=== PATIENT | male | born 1935 | race Caucasian/White ===

== ENCOUNTER 2017-08-29 17:22 | Emergency (ER) | payer OTHER ==
[~2017-08-29] VITALS: Ht 167.6 cm; Wt 98.9 kg
[~2017-08-29 17:22] MED LIST: ALLOPURINOL300 MG PO; CARDURA4 MG PO; DITROPAN XL15 MG PO; GABAPENTIN400 MG PO; GEMFIBROZIL600 MG PO; LOVASTATIN10 MG PO; OMEPRAZOLE20 M1 PO
[2017-08-29] MEDS ORDERED: ACETAMINOPHEN 325 MG TAB PO ONE (18:15)
[2017-08-29 18:32] LABS: BASOPHILS % 0.2 % (0.0-1.0); EOSINOPHILS % 0.1 % (0.0-6.0); HEMATOCRIT 40.9 % (38.2-49.6); HEMOGLOBIN 14.1 g/dL (14.0-18.0); LYMPHOCYTES # (AUTO) 0.6 (1.0-3.2); LYMPHOCYTES % 5.6 % (18.0-39.1); MEAN CORPUSCULAR HEMOGLOBIN 33.6 pg (28-32); MEAN CORPUSCULAR HGB CONC 34.5 g/dL (31-35); MEAN CORPUSCULAR VOLUME 97.4 fL (81-99); MONOCYTES # (AUTO) 0.6 (0.2-0.8); MONOCYTES % 5.6 % (4.4-11.3); NEUTROPHILS % 88.1 % (38.7-80.0); PLATELET COUNT 148 x10e3/uL (140-360); RED CELL DISTRIBUTION WIDTH 14.8 % (11.7-14.4)
[2017-08-29 18:48] LABS: ALBUMIN 3.7 g/dL (3.5-5.0); ALBUMIN/GLOBULIN RATIO 0.9 (0.8-2.0); ANION GAP 13.9 mmol/L (8-16); CALCIUM 9.4 mg/dL (8.4-10.2); CREATININE, SERUM 1.39 mg/dL (0.72-1.25); POTASSIUM 3.9 mmol/L (3.5-5.1)
[2017-08-29 18:54] LABS: KETONES,URINE TRACE (NEGATIVE); LEUKOCYTE ESTERASE ,URINE 2+ (NEGATIVE); NITRITE,URINE NEGATIVE (NEGATIVE); URINE UROBILINOGEN 4 mg/dL (0.2 - 1)
[2017-08-29 18:55] LABS: BILIRUBIN,URINE 1+ (NEGATIVE); CLARITY,URINE SL CLOUDY (CLEAR); COLOR,URINE YELLOW (YELLOW); PROTEIN,URINE DIPSTICK TRACE (NEGATIVE)
[2017-08-29 19:04] LABS: WBC,URINE (MAN) >50 /HPF (0-5)
[2017-08-29 19:05] LABS: BACTERIA,URINE MODERATE /HPF; EPITHELIAL CELLS,URINE RARE /LPF
== END 2017-08-29 19:25 | disposition left against medical advice (07) ==
LOC: ER 17:22
DX: R50.9 Fever, unspecified (principal)
CPT/HCPCS: 36415; 80053; 81001; 83605; 85025; 87040; 87086; 87186; 99282

== ENCOUNTER → 2018-01-22 | Day surgery (SDC) | payer OTHER ==
[2018-01-21 14:04] LABS: BASOPHILS % 0.5 % (0.0-1.0); EOSINOPHILS # (AUTO) 0.1 (0.0-0.4); EOSINOPHILS % 2.2 % (0.0-6.0); HEMATOCRIT 37.3 % (38.2-49.6); HEMOGLOBIN 12.2 g/dL (14.0-18.0); LYMPHOCYTES # (AUTO) 2.7 (1.0-3.2); LYMPHOCYTES % 48.9 % (18.0-39.1); MEAN CORPUSCULAR HEMOGLOBIN 33.1 pg (28-32); MEAN CORPUSCULAR HGB CONC 32.7 g/dL (31-35); MEAN CORPUSCULAR VOLUME 101.1 fL (81-99); MONOCYTES # (AUTO) 0.6 (0.2-0.8); MONOCYTES % 11.2 % (4.4-11.3); NEUTROPHILS % 36.8 % (38.7-80.0); PLATELET COUNT 145 x10e3/uL (140-360); RED BLOOD COUNT 3.69 x10e6/uL (4.3-5.7); RED CELL DISTRIBUTION WIDTH 13.5 % (11.7-14.4)
[~2018-01-22] MED LIST changes: +ASPIR 8181 MG PO; +FENOFIBRATE145 MG PO; +FUROSEMIDE40 MG PO; +GABAPENTIN300 MG PO; +LIDOCAINE HCL 2% LOCAL INJ 5 ML SDV VIAL INJ ONE; +PROPOFOL IV EMULSION 10 MG/ML 20 ML VIAL ONE; +TIZANIDINE HCL4 MG PO; +ULTRAM 50MG50 MG PO
== END | disposition home or self-care (01) ==
LOC: OR 08:56
PROVIDERS: ATTEND Internal Medicine Gastroenterology
DX: K59.00 Constipation, unspecified (principal); K63.5 Polyp of colon; K57.30 Diverticulosis of large intestine without perforation or abscess without bleeding; K64.8 Other hemorrhoids; C67.9 Malignant neoplasm of bladder, unspecified; K21.9 Gastro-esophageal reflux disease without esophagitis; E66.3 Overweight; Z01.810 Encounter for preprocedural cardiovascular examination; Z01.812 Encounter for preprocedural laboratory examination; Z79.82 Long term (current) use of aspirin; Z68.29 Body mass index [BMI] 29.0-29.9, adult; Z87.891 Personal history of nicotine dependence; Z80.0 Family history of malignant neoplasm of digestive organs
CPT/HCPCS: 36415; 45380; 85025; 93005; J2001

== ENCOUNTER 2020-08-26 13:08 | Emergency (ER) | payer MEDICARE ==
[~2020-08-26] VITALS: Ht 167.6 cm; Wt 98.9 kg
[~2020-08-26 13:08] MED LIST changes: -LIDOCAINE HCL 2% LOCAL INJ 5 ML SDV VIAL INJ ONE; -PROPOFOL IV EMULSION 10 MG/ML 20 ML VIAL ONE
--- NOTE | 2020-08-26 13:25 | Emergency Department Note ---
History of Present Illnes History of Present Illness Chief Complaint: General Medicine Complaints History of Present Illness This is a 84 year old male PATIENT IN FROM [facility] - REPORTEDLY HAD ABNORMAL EKG SO SENT HERE (ECG WITH PT SHOWS NSR WITH OCCAS PAC'S BUT COMPUTER READ IT ATRIAL FIBRILLATION AT TOP OF PAGE). PATIENT DENIES ANY PAIN, COUGH, SHORTNESS OF BREATH. PATIENT STATES HE WAS JUST HERE FOR [facility] TESTING FOR A TURP SCHEDULED 08/31/2020. PATIENT ALERT AND ORIENTED, RESP EVEN AND NONLABORED, APPEARS IN NO DISTRESS. Historian: Patient Arrival Mode: Car Aviation Ordnance Officer Required: No Onset (how long ago): minute(s) Location: NO PAIN Radiation: Reports non-radiation Chronicity: new Context: Denies recent illness Relieving factors: none Exacerbating factors: none Associated symptoms: Reports denies other symptoms Past Medical/Family History Physician Review I have reviewed the patient's past medical and family history. Any updates have been documented here. 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 72' FACIAL RECONSTRUCTIONS TONSILLECTOMY Cystoscopy Social History Smoking Cessation: Never Smoker Counseling Performed: No Alcohol Use: None Any Illegal Drug Use: No TB Exposure/Symptoms: No Physically hurt or threatened: No Family History Family history of heart diseas: No Other Any Pre-Existing Lines (PICC,: No Review of Systems Review of Systems Constitutional: Reports no symptoms EENTM: Reports no symptoms Cardiovascular: Reports no symptoms; Denies chest pain Respiratory: Reports no symptoms; Denies dyspnea, Denies dyspnea on exertion Gastrointestinal: Reports no symptoms Genitourinary: Reports no symptoms Musculoskeletal: Reports no symptoms Integumentary: Reports no symptoms Neurological: Reports no symptoms Psychological: Reports no symptoms Endocrine: Reports no symptoms Hematological/Lymphatic: Reports no symptoms Physical Exam Related Data Allergies: Coded Allergies: No Known Allergies (Unverified , 08/26/20) Triage Vital Signs Vital Signs Date Time Temp Pulse Resp B/P (MAP) Pulse Ox O2 Delivery O2 Flow Rate FiO2 08/26/20 13:11 97.9 66 18 157/75 100 Room Air Vital signs reviewed: Yes Physical Exam CONSTITUTIONAL Constitutional: Present well-developed, Present well-nourished, Present obese HENT HENT: Present normocephalic, Present atraumatic, Present oropharynx clear/moist, Present nose normal HENT L/R: Present left ext ear normal, Present right ext ear normal EYES Eyes: Reports PERRL, Reports conjunctivae normal NECK Neck: Present ROM normal PULMONARY Pulmonary: Present effort normal, Present breath sounds normal CARDIOVASCULAR Cardiovascular: Present regular rhythm, Present heart sounds normal, Present capillary refill normal, Present normal rate GASTROINTESTINAL Abdominal: Present soft, Present nontender, Present bowel sounds normal GENITOURINARY Genitourinary: Present exam deferred SKIN Skin: Present warm, Present dry MUSCULOSKELETAL Musculoskeletal: Present ROM normal NEUROLOGICAL Neurological: Present alert, Present oriented x 3, Present no gross motor or sensory deficits PSYCHOLOGICAL Psychological: Present mood/affect normal, Present judgement normal Procedures 12 Lead ECG Interpretation ECG Interpretation : ECG: ECG 1 Aviation Ordnance Officer: Interpreted by ED physician Date: Aug 26, 2020 Time: 13:12 Rhythm: sinus rhythm Rate: normal BPM: 61 QRS axis: left ST segments normal: Yes T waves normal: Yes Additional Comments POOR RWP Assessment & Plan Medical Decision Making MDM NO EMERGENCY - I CALLED ANESTHESIOLOGY, DR CRAFT, WHO WAS ONLY CONCERNED ABOUT NEW AFIB (ACTUALLY WAS NSR WITH PAC'S) - I REPEATED ECG HERE - NSR WITH NO ST-TW CHANGES Reassessment Reassessment DC HOME, F/U SCHEDULED Assessment & Plan Final Impression: (1) Normal sinus rhythm Depart Disposition: HOME, SELF-CARE Last Vital Signs Date Time Temp Pulse Resp B/P (MAP) Pulse Ox O2 Delivery O2 Flow Rate FiO2 08/26/20 13:11 97.9 66 18 157/75 100 Room Air Home Meds Reported Medications Aspirin (ASPIR 81) 81 Mg Tablet.dr, 81 MG PO DAILY 01/21/18 Fenofibrate Nanocrystallized (FENOFIBRATE) 145 Mg Tablet, 160 MG PO DAILY 01/21/18 Tizanidine Hcl (TIZANIDINE HCL) 4 Mg Tablet, 2 MG PO HS, TAB 01/21/18 Tramadol Hcl* (ULTRAM 50MG*) 50 Mg Tab, 50 MG PO PRN, TAB 01/21/18 Furosemide (FUROSEMIDE) 40 Mg Tablet, 40 MG PO PRN, #30 TAB 01/21/18 Gabapentin (GABAPENTIN) 300 Mg Capsule, 300 MG PO TID, #60 CAP 01/21/18 Omeprazole (OMEPRAZOLE) 20 Mg Tablet.dr, 20 MG PO DAILY 01/24/13 Doxazosin Mesylate (CARDURA) 4 Mg Tablet, 4 MG PO QHS 01/24/13 Allopurinol (ALLOPURINOL) 300 Mg Tablet, 300 MG PO DAILY 01/24/13 Lovastatin (LOVASTATIN) 10 Mg Tablet, 10 MG PO QHS 01/24/13 Gemfibrozil (GEMFIBROZIL) 600 Mg Tablet, 600 MG PO BID 01/24/13 JASSI HELLER MD Aug 26, 2020 13:25
== END 2020-08-26 13:35 | disposition home or self-care (01) ==
LOC: ER 13:14
DX: I49.8 Other specified cardiac arrhythmias (principal); M10.9 Gout, unspecified; Z85.51 Personal history of malignant neoplasm of bladder
CPT/HCPCS: 93005; 99282